=== PATIENT | female | born 1950 | race African-American/Black ===

== ENCOUNTER 2018-03-15 08:43 | Day surgery (SDC) | payer MEDICARE, OTHER ==
--- NOTE | 2018-03-08 11:45 | EKG REPORT ---
SEVERITY:- ABNORMAL ECG - SINUS RHYTHM NONSPECIFIC INTRAVENTRICULAR CONDUCTION DELAY INFERIOR INFARCT, AGE INDETERMINATE : Confirmed by: Benjamin Cobian 08-Mar-2018 11:45:00
[2018-03-08 12:07] LABS: HEMATOCRIT 27.2 % (36.0-47.0); HEMOGLOBIN 9.1 g/dL (12.0-15.5); MEAN CORPUSCULAR HEMOGLOBIN 29.2 pg (27.0-33.4); MEAN CORPUSCULAR HGB CONC 33.4 g/dL (32.0-36.0); MEAN CORPUSCULAR VOLUME 88 fl (80-97); PLATELET COUNT 261 10^3/uL (150-450); RED BLOOD COUNT 3.11 10^6/uL (3.72-5.28); RED CELL DISTRIBUTION WIDTH 17.5 % (11.5-14.0); WHITE BLOOD COUNT 11.2 10^3/uL (4.0-10.5)
[2018-03-08 12:30] LABS: ANION GAP 11 (5-19); BLOOD UREA NITROGEN 38 mg/dL (7-20); CALCIUM 9.2 mg/dL (8.4-10.2); CARBON DIOXIDE 21 mmol/L (22-30); CHLORIDE 111 mmol/L (98-107); GLUCOSE 128 mg/dL (75-110); POTASSIUM 4.5 mmol/L (3.6-5.0); SODIUM 142.5 mmol/L (137-145)
--- NOTE | 2018-03-08 13:08 | RADIOLOGY REPORT (SQ) ---
EXAM DESCRIPTION: CHEST PA/LATERAL COMPLETED DATE/TIME: 03/08/2018 11:40 am REASON FOR STUDY: SOB, PRE OP COMPARISON: None. EXAM PARAMETERS: NUMBER OF VIEWS: two views TECHNIQUE: Digital Frontal and Lateral radiographic views of the chest acquired. RADIATION DOSE: NA LIMITATIONS: none FINDINGS: LUNGS AND PLEURA: No opacities, masses or pneumothorax. No pleural effusion. MEDIASTINUM AND HILAR STRUCTURES: No masses or contour abnormalities. HEART AND VASCULAR STRUCTURES: Heart normal size. No evidence for failure. BONES: No acute findings. HARDWARE: CABG. Left dual lead defibrillator. OTHER: No other significant finding. IMPRESSION: No acute findings in the chest. TECHNICAL DOCUMENTATION: JOB ID: [id number] [employer]- All Rights Reserved Reading location - IP/workstation name: [email or web address]
[~2018-03-15 08:43] MED LIST: LACTATED RINGERS 1000 ML IV PRN; LIDOCAINE 0.5% INJ-PF (5 MG/ML) 50 ML SDV SUBCUT PRN
[2018-03-15 11:30] LABS: INTERNATIONAL RATION (INR) 1.32; PROTHROMBIN TIME 17.1 SEC (11.4-15.4)
[2018-03-15 11:31] LABS: PARTIAL THROMBOPLASTIN TIME 35.6 SEC (23.5-35.8)
[2018-03-15] MEDS ORDERED: KETOROLAC TROMETHAMINE 60 MG/2 ML SDV ONE (13:21)
[2018-03-15] MEDS ORDERED: DEXAMETHASONE SOD PHOSPHATE INJ 4 MG/1 ML VIAL ONE (13:21)
[2018-03-15] MEDS ORDERED: SUCCINYLCHOLINE CHLORIDE INJ 200 MG/10 ML VIAL ONE (13:21)
[2018-03-15] MEDS ORDERED: ONDANSETRON HCL INJ/PF 4 MG/2 ML SDV ONE (13:21)
[2018-03-15] MEDS ORDERED: PROPOFOL INJ 200 MG/20 ML VIAL IV ONE (16:21)
[2018-03-15] MEDS ORDERED: MIDAZOLAM 2 MG/2 ML INJ ONE (16:21)
[2018-03-15] MEDS ORDERED: FENTANYL CITRATE INJ/PF 100 MCG/2 ML AMPUL ONE (16:21)
[2018-03-15] MEDS ORDERED: BUPIVACAINE HCL 0.5 % INJ/PF 30 ML SDV ONE (17:13)
[2018-03-15] MEDS ORDERED: EPHEDRINE SULFATE INJ 50 MG/1 ML AMPULE ONE (17:15)
[2018-03-15 19:54] VITALS: BP 126/66
--- NOTE | 2018-03-17 15:17 | Discharge Summary ---
Discharge Summary (SDC) - Discharge Final Diagnosis: Perianal hidradenitis. Colon Polyps. Date of Surgery: 03/15/18 Discharge Date: 03/15/18 Condition: Stable Forms: ASU Anesthesia D/C Instruction, Discharge POC-Surgical Service Referrals: AMY CONNOLLY MD [ACTIVE STAFF] - Discharge Diet: As Tolerated Respiratory Treatments at Home: Deep Breathing/Coughing, Incentive Spirometer Discharge Activity: Activity As Tolerated, Balance Activity w/Rest, No Driving, Energy Conservation, No Lifting Over 10 Pounds, No Lifting/Push/Pulling, Slowly Increase Activity, No tub bath Home Care Assistance: None Needed Report the Following to Your Physician Immediately: Shortness of Breath, Nausea , Vomiting, Increase in Pain, Fever over 101 Degrees, Unusual Bleeding, Redness , Swelling, Warmth, Increased Soreness, Drainage-Yellow, Drainage-Ling, Drainage -Green, Drainage-Foul Smelling, Large Clots, Numbness, Tingling Sensation, Wheezing, Seizure, IV Site Infection Signs
--- NOTE | 2018-03-17 15:26 | Operative Report ---
Nonrecallable Operative Report DATE OF SURGERY: 03/15/18 PREOPERATIVE DIAGNOSIS: 1. Recurrent infections in the perianal area, suspicious for fistula. 2. Screening for colon cancer. POSTOPERATIVE DIAGNOSIS: 1. Extensive hidradenitis in the perianal area. No evidence of fistula. 2. Colon polyps at 65 cm (2 polyps removed) OPERATION: 1. Colonoscopy to the cecum. 2. Snare polypectomy of 2 colon polyps at 65 cm. 3. Excision of infected, cystic perianal hidradenitis x2 SURGEON: AMY CONNOLLY ANESTHESIA: GA TISSUE REMOVED OR ALTERED: 1. Colon polyps at 65 cm x2. 2. Inflamed perirectal areas x2, consistent with chronically infected hidradenitis COMPLICATIONS: None apparent ESTIMATED BLOOD LOSS: Minimal PROCEDURE: Drains/implants: 4 x 4 gauze dressings to open perianal areas. Procedure in detail: After informed consent was obtained, the patient was brought to the operating room and laid in the prone jackknife position. The colonoscope was inserted into the rectum. It was passed up the rectum, sigmoid colon, descending colon, across the transverse colon, down the ascending colon, and into the cecum. The ileocecal valve and appendiceal orifice were identified. The scope was then withdrawn, circumferentially noting the mucosa. The prep was very good. The scope was pulled back past the ascending colon, transverse colon, to the descending colon. At approximately 65 cm, two polyps were identified in close proximity to one another. These were removed via hot snare polypectomy. The scope was then withdrawn down the remainder of the descending colon, sigmoid colon, and into the rectum. A retroflexion maneuver was performed in the rectum. No internal hemorrhoids or obvious fistula tracts were identified. The scope was straightened, air was suctioned from the rectum , the scope was removed, and this portion of the procedure was concluded. Attention was then turned to the rectal exam under anesthesia. An anal block was created with quarter percent Marcaine. A Hill-Soler retractor was then inserted. No areas of fistulization could be identified inside the rectum. The large, fluctuant areas in the perianal area were then inspected. Her infection appears to be associated with hidradenitis, not with an anorectal fistula. The areas were located at approximately 11:00 and 7:00 in the perianal skin. Incision was created over the areas of maximal fluctuance in both places. There was chronically inflamed hypertrophic tissue present. This was excised completely using electrocautery. Once this was completed, several sutures were used to very loosely reapproximate the most open portion of the wound. The wounds were then packed with damp 4 x 4 gauze. The total excised areas measured approximately 4 cm x 2 cm and 3 cm x 3 cm. The procedure at this time was concluded. All sponge, instrument, and needle counts were correct x2.. Condition: Stable.
== END 2018-03-15 19:45 | disposition home or self-care (01) ==
LOC: OROUT 08:43
PROVIDERS: ATTEND Surgery
DX: L73.2 Hidradenitis suppurativa (principal); D12.6 Benign neoplasm of colon, unspecified; D64.9 Anemia, unspecified; Z79.01 Long term (current) use of anticoagulants; Z88.0 Allergy status to penicillin; Z88.8 Allergy status to other drugs, medicaments and biological substances; I25.2 Old myocardial infarction; Z95.810 Presence of automatic (implantable) cardiac defibrillator; E11.9 Type 2 diabetes mellitus without complications; R06.02 Shortness of breath; Z79.4 Long term (current) use of insulin; Z79.899 Other long term (current) drug therapy; Z79.82 Long term (current) use of aspirin; E66.3 Overweight; Z68.29 Body mass index [BMI] 29.0-29.9, adult; I25.10 Atherosclerotic heart disease of native coronary artery without angina pectoris; I10 Essential (primary) hypertension
CPT/HCPCS: 93005; 36415 ×2; 82962; 84132; 85027; 85610; 85730; 80048; 88305 ×2; 71046; 93010; 45385; 11470; J2250; J3490 ×2; J1100; J1885; J3010; J0330; J2405; J2704; 902

== ENCOUNTER 2019-12-24 09:53 | Day surgery (SDC) | payer MEDICARE, OTHER ==
[2019-12-20 12:28] LABS: HEMATOCRIT 26.2 % (36.0-47.0); HEMOGLOBIN 8.6 g/dL (12.0-15.5); MEAN CORPUSCULAR HEMOGLOBIN 28.9 pg (27.0-33.4); MEAN CORPUSCULAR HGB CONC 32.7 g/dL (32.0-36.0); MEAN CORPUSCULAR VOLUME 88 fl (80-97); PLATELET COUNT 239 10^3/uL (150-450); RED BLOOD COUNT 2.97 10^6/uL (3.72-5.28); WHITE BLOOD COUNT 9.6 10^3/uL (4.0-10.5)
[2019-12-20 12:52] LABS: ANION GAP 7 (5-19); BLOOD UREA NITROGEN 49 mg/dL (7-20); CARBON DIOXIDE 21 mmol/L (22-30); CHLORIDE 109 mmol/L (98-107); GLUCOSE 116 mg/dL (75-110); POTASSIUM 4.5 mmol/L (3.6-5.0)
--- NOTE | 2019-12-20 21:04 | EKG REPORT ---
SEVERITY:- ABNORMAL ECG - SINUS RHYTHM ATRIAL PREMATURE COMPLEX AARON, CONSIDER BIATRIAL ABNORMALITIES IVCD, CONSIDER ATYPICAL LBBB PROBABLE INFERIOR INFARCT WITH LBBB : Confirmed by: Benjamin Cobian 20-Dec-2019 21:03:36
[~2019-12-24 09:53] MED LIST changes: +ACETAMINOPHEN 325 MG TABLET ONE; +ACETAMINOPHEN 325 MG TABLET PO PRN; +IBUPROFEN 800 MG in NORMAL SALINE 250 ML IV PRN; -LACTATED RINGERS 1000 ML IV PRN; -LIDOCAINE 0.5% INJ-PF (5 MG/ML) 50 ML SDV SUBCUT PRN; +VANCOMYCIN HCL 1,000 MG in DEXTROSE 5%-WATER 250 ML IV PRN
[2019-12-24 11:17] LABS: POTASSIUM 4.2 mmol/L (3.6-5.0)
[2019-12-24] MEDS ORDERED: PROPOFOL INJ 200 MG/20 ML VIAL IV ONE (11:34)
[2019-12-24] MEDS ORDERED: MIDAZOLAM 2 MG/2 ML INJ ONE (11:34)
[2019-12-24] MEDS ORDERED: ONDANSETRON HCL INJ/PF 4 MG/2 ML SDV ONE (11:34)
[2019-12-24] MEDS ORDERED: FENTANYL CITRATE INJ/PF 100 MCG/2 ML AMPUL ONE ×2 (11:34→13:07)
[2019-12-24] MEDS ORDERED: BUPIVACAINE HCL 0.25 % INJ/PF (2.5 MG/1 ML) 30 ML VIAL ONE (11:35)
[2019-12-24] MEDS ORDERED: LIDOCAINE 1% INJ-PF (10 MG/ML) 30 ML SDV ONE (11:36)
[2019-12-24 12:03] LABS: INTERNATIONAL RATION (INR) 1.24; PARTIAL THROMBOPLASTIN TIME 38.6 SEC (23.5-35.8); PROTHROMBIN TIME 15.8 SEC (11.4-15.4)
--- NOTE | 2019-12-24 13:15 | Discharge Summary ---
Discharge Summary (SDC) - Discharge Final Diagnosis: Infected cystic lesion of the right breast and right buttock Date of Surgery: 12/24/19 Discharge Date: 12/24/19 Condition: Stable Treatment or Instructions: Discharge home. Diet as tolerated. Activity: Nonstrenuous. Follow[facility]up [facility] 7 to 10 days. Remove dressing tomorrow morning (Monday). Okay to shower after dressings have been removed. No hot tubs, swimming pools, or tub baths until wounds have healed. Continue with damp to dry dressing changes twice per day. [place] 5/325 mg p.o. every 6 hours PRN for pain. Prescriptions: Hydrocodone/Acetaminophen [[place] 5-325 mg Tablet] 1 tab PO Q6HP PRN #15 tablet PRN Reason: For Pain Referrals: DIPTI HORAN FNP-C [Primary Care Provider] - Discharge Diet: As Tolerated Respiratory Treatments at Home: Deep Breathing/Coughing Discharge Activity: Balance Activity w/Rest Report the Following to Your Physician Immediately: Shortness of Breath, Nausea, Vomiting, Increase in Pain, Fever over 101 Degrees, Unusual Bleeding, Redness
--- NOTE | 2019-12-24 13:19 | Operative Report ---
Nonrecallable Operative Report DATE OF SURGERY: 12/24/19 PREOPERATIVE DIAGNOSIS: Infected right buttock and right breast cystic lesions POSTOPERATIVE DIAGNOSIS: Same as above OPERATION: 1. Excision of 4 cm right buttock infected cystic lesion. 2. Excision of 4 cm right breast infected cystic lesion. SURGEON: [facility] DIRECTOR: SHAYLEE DELGADO ANESTHESIA: LMAC TISSUE REMOVED OR ALTERED: Right buttock and right breast cystic lesion COMPLICATIONS: None apparent ESTIMATED BLOOD LOSS: Minimal PROCEDURE: Drains/implants: Surgicel to the wound base of the right buttock lesion. Procedure in detail: After informed consent was obtained, the patient was brought into the operating room and laid in the left lateral decubitus position. The area of the right buttock was prepped and draped in a normal sterile fashion. Local anesthesia was administered. The cystic lesion of the right buttock was easily identified. It was obviously infected, and draining purulent material. It was 4 cm in diameter. It was excised from the skin and subcutaneous tissues using sharp dissection. Surgicel was placed in the wound bed to aid in hemostasis. A dressing was then placed over top, and this portion of the procedure was concluded. Attention was then turned to the right breast. A similar lesion was identified in the right inframammary fold. An elliptical incision was created over the lesion. The lesion was excised from the subcutaneous tissue/breast tissue using sharp dissection. The lesion measured 4 cm in diameter. It was obviously infected and draining purulent material. Once the lesion was excised, the healthy appearing subcutaneous tissues were loosely reapproximated using 3-0 Vicryl suture. The skin was left open. A dressing was placed, and the procedure was concluded. All sponge, instrument, needle counts were correct x2. Condition: Stable. Shaylee Delgado PA-C was scrubbed and present the entirety of the procedure. She assisted with all portions of the procedure including opening of the skin, removal of the lesions, placement of the dressing.
[2019-12-24] MEDS ORDERED: MEPERIDINE HCL/PF INJ 25 MG/1 ML DISP.SYRIN IV PRN (13:34)
[2019-12-24] MEDS ORDERED: PROMETHAZINE HCL INJ 25 MG/1 ML VIAL IV PRN ×2 (13:34)
[2019-12-24] MEDS ORDERED: OXYCODONE-ACETAMINOPHEN 5-325 MG TABLET PO PRN ×2 (13:34)
[2019-12-24] MEDS ORDERED: MORPHINE SULFATE 10 MG/ML INJ IV PRN (13:34)
[2019-12-24] MEDS ORDERED: DIPHENHYDRAMINE HCL 50 MG/ML VIAL IV PRN (13:34)
[2019-12-24] MEDS ORDERED: FENTANYL CITRATE INJ/PF 100 MCG/2 ML AMPUL IV PRN ×3 (13:34)
[2019-12-24] MEDS ORDERED: HYDROCODONE/ACETAMINOPHEN 5-325 MG TABLET ONE (14:16)
[2019-12-24] MEDS ORDERED: HYDROCODONE/ACETAMINOPHEN 5-325 MG TABLET PO ONE (14:45)
[2019-12-24 15:48] VITALS: BP 148/79
== END 2019-12-24 15:40 | disposition home or self-care (01) ==
LOC: OROUT 09:53
PROVIDERS: ATTEND Surgery
DX: L72.0 Epidermal cyst (principal); I25.2 Old myocardial infarction; I25.10 Atherosclerotic heart disease of native coronary artery without angina pectoris; E11.22 Type 2 diabetes mellitus with diabetic chronic kidney disease; N18.3 Chronic kidney disease, stage 3 (moderate); E66.9 Obesity, unspecified; D50.9 Iron deficiency anemia, unspecified; Z79.899 Other long term (current) drug therapy; Z79.01 Long term (current) use of anticoagulants; Z95.810 Presence of automatic (implantable) cardiac defibrillator; Z79.82 Long term (current) use of aspirin; Z79.4 Long term (current) use of insulin; Z03.818 Encounter for observation for suspected exposure to other biological agents ruled out; Z95.1 Presence of aortocoronary bypass graft; Z87.891 Personal history of nicotine dependence; Z95.828 Presence of other vascular implants and grafts
CPT/HCPCS: 11404; 19120; 93005; 36415 ×2; 82947; 84132; 85027; 85610; 85730; 80048; 88305 ×2; 93010; 00300; U0003; A9270 ×2; J2250; J3010; J3490; J2405; J7060; J2704; J3370; C9803; 300; 87635; J1741; J7050